=== PATIENT | female | born 1975 | race Caucasian/White ===

== ENCOUNTER → 2022-03-26 11:51 | Outpatient (CLI) | payer BC, SELFPAY ==
--- NOTE | ~2022-03-26 | US_ITS ---
EXAMINATION: US carotid duplex BI DATE: 03/26/2022 12:25 INDICATION: Carotid artery disorder TECHNIQUE: Grayscale, color Doppler, and pulsed Doppler images of the cervical carotid arteries were obtained. The degree of vessel stenosis is placed in one of the following categories: normal, <50%, 5 0-69%, >=70% but less than near-occlusion, near-occlusion, or total occlusion. Note that percent sten osis relative to normal distal artery lumen diameter is indirectly measured from velocity measurement s as described by Cal, et al. Radiology 2003; 229:[id number]. COMPARISON: None. FINDINGS: RIGHT: The right common carotid artery (CCA) peak systolic velocity (PSV) is 94 cm/s. The right internal car otid artery (ICA) PSV is 65 cm/s. The right ICA end-diastolic velocity (EDV) is 25 cm/s. The right IC A/CCA PSV ratio is 0.7. Grayscale and color Doppler images demonstrate no evident stenosis or plaque in the ICA. The external carotid artery (ECA) PSV is 51 cm/s. There is antegrade flow in the right ve rtebral artery. LEFT: The left CCA PSV is 96 cm/s. The left ICA PSV is 87 cm/s. The left ICA EDV is 39 cm/s. The left ICA/C CA PSV ratio is 0.9. Grayscale and color Doppler images demonstrate no evident stenosis or yield plaq ue in the ICA. The ECA PSV is 74 cm/s. There is antegrade flow in the left vertebral artery. IMPRESSION: 1. No evident atherosclerotic plaque or stenosis in the right internal carotid artery. 2. No evident atherosclerotic plaque or stenosis in the left internal carotid artery. Reviewed, dictated and finalized at location A. IMPRESSION: 1. No evident atherosclerotic plaque or stenosis in the right internal carotid artery. 2. No evident atherosclerotic plaque or stenosis in the left internal carotid a rtery.
== END ==
PROVIDERS: PCP Family Medicine; Visit Provider Family Medicine
DX: I77.9 Disorder of arteries and arterioles, unspecified (principal)
CPT/HCPCS: 93880

== ENCOUNTER 2024-09-15 11:19 | Outpatient (CLI) | payer BC, SELFPAY ==
--- NOTE | ~2024-09-15 | XR_ITS ---
Clinical Indication: Dyspnea PA and lateral views of the chest: Comparison: None Findings: The lungs are clear, without evidence of focal consolidation or pleural effusion. Cardiome diastinal silhouette is within normal limits. Bones and soft tissues are unremarkable. Impression: Normal chest. Reviewed, dictated and finalized at location . Impression: Normal chest.
== END 2024-09-15 11:20 | disposition home or self-care (01) ==
PROVIDERS: PCP Family Medicine; Visit Provider Family Medicine
DX: R06.00 Dyspnea, unspecified (principal)
CPT/HCPCS: 71046